=== PATIENT | female | born 1980 | race Caucasian/White ===

== ENCOUNTER 2020-11-26 19:46 | Emergency (ER) | payer OTHER, MEDICAID ==
[~2020-11-26] VITALS: Ht 149.9 cm; Wt 122.5 kg
[2020-11-26] MEDS ORDERED: NORCO5 PO (22:17)
[2020-11-26] MEDS ORDERED: CYCLOBENZAPRINE5 MG PO (22:17)
[2020-11-26 22:30] VITALS: BP 176/80
== END 2020-11-26 22:30 | disposition home or self-care (01) ==
LOC: M.ERS 19:46
DX: N28.1 Cyst of kidney, acquired (principal); Z88.6 Allergy status to analgesic agent